=== PATIENT | female | born 1945 | race Asian ===

== ENCOUNTER → 2017-01-26 | Outpatient (CLI) | payer MEDICARE | END | disposition home or self-care (01) | LOC: CFH 10:28 | PROVIDERS: ATTEND Internal Medicine | DX: M19.071 Primary osteoarthritis, right ankle and foot (principal); M79.674 Pain in right toe(s); M25.474 Effusion, right foot ==

== ENCOUNTER 2019-12-07 18:10 | Emergency (ER) | payer MEDICARE ==
[~2019-12-07] VITALS: Ht 144.8 cm; Wt 44.9 kg
[2019-12-07 18:12] VITALS: BP 139/78
== END 2019-12-07 19:53 | disposition home or self-care (01) ==
LOC: ED 19:47
DX: H66.92 Otitis media, unspecified, left ear (principal); H61.22 Impacted cerumen, left ear
CPT/HCPCS: 70450; 99284

== ENCOUNTER 2020-06-03 12:19 | Emergency (ER) | payer MEDICARE ==
[~2020-06-03] VITALS: Ht 144.8 cm; Wt 47.1 kg
[2020-06-03 12:23] VITALS: BP 129/82
--- NOTE | 2020-06-03 12:58 | NUR ---
Assumed care of patient. Patient fell off 6 foot ladder yesterday. Denies LOC. C/O left posterior head lac, bleeding controlled. C/O left elbow pain, swelling, and skin tear from fall. NAD. A&Ox4. Will continue to monitor.
[2020-06-03] MEDS ORDERED: NEOSPORIN OINT. PKT 1 PACKET ONE (13:16)
== END 2020-06-03 14:32 | disposition home or self-care (01) ==
LOC: ED 14:00
DX: S01.01XA Laceration without foreign body of scalp, initial encounter (principal); S50.312A Abrasion of left elbow, initial encounter; L03.113 Cellulitis of right upper limb; R55 Syncope and collapse; M54.2 Cervicalgia; Z90.710 Acquired absence of both cervix and uterus; W11.XXXA Fall on and from ladder, initial encounter; Y93.89 Activity, other specified; Y92.098 Other place in other non-institutional residence as the place of occurrence of the external cause; Y99.8 Other external cause status
CPT/HCPCS: 12031; 70450; 72125; 93005; 99285

== ENCOUNTER 2020-06-11 12:45 | Emergency (ER) | payer MEDICARE ==
[~2020-06-11] VITALS: Ht 144.8 cm; Wt 46.7 kg
[2020-06-11 12:47] VITALS: BP 123/76
--- NOTE | 2020-06-11 13:29 | NUR ---
Patient/Caregiver given discharge instructions and they have confirmed that they understand the instructions. Patient ambulatory with steady gait.
== END 2020-06-11 13:30 | disposition home or self-care (01) ==
LOC: ED 13:18
DX: S01.01XD Laceration without foreign body of scalp, subsequent encounter (principal); Z90.710 Acquired absence of both cervix and uterus; X58.XXXD Exposure to other specified factors, subsequent encounter
CPT/HCPCS: 99281

== ENCOUNTER 2020-06-19 08:14 | Emergency (ER) | payer MEDICARE ==
[~2020-06-19] VITALS: Ht 144.8 cm; Wt 46.6 kg
[2020-06-19 09:09] VITALS: BP 123/68
[2020-06-19 09:22] LABS: BASOPHILS # (AUTO) 0.02 x10^3/uL (0-0.1); BASOPHILS % (AUTO) 0 % (0-1); EOSINOPHILS # (AUTO) 0.04 x10^3/uL (0-0.4); EOSINOPHILS % (AUTO) 1 % (1-7); LYMPHOCYTES # (AUTO) 0.76 x10^3/uL (1-3.4); LYMPHOCYTES % (AUTO) 12 % (22-44); MD NO; MEAN CORPUSCULAR HEMOGLOBIN 29.9 pg (27.0-34.8); MEAN CORPUSCULAR HGB CONC 32.7 g/dL (32.4-35.8); MEAN CORPUSCULAR VOLUME 91.5 fL (80-100); MEAN PLATELET VOLUME 6.7 fL (7.4-10.4); MONOCYTES # (AUTO) 0.49 x10^3/uL (0.2-0.8); MONOCYTES % (AUTO) 8 % (2-9); NEUTROPHILS # (AUTO) 4.95 x10^3/uL (1.8-6.8); NEUTROPHILS % (AUTO) 79 % (42-75); PLATELET COUNT 243 x10^3/uL (130-400); RED BLOOD COUNT 4.19 x10^6/uL (3.82-5.3); RED CELL DISTRIBUTION WIDTH 13.7 % (9.6-15.2)
[2020-06-19 09:29] LABS: ALANINE AMINOTRANSFERASE 26 U/L (12-78); ALBUMIN 3.5 g/dL (3.4-5.0); ANION GAP 3 mmol/L (5-15); CALCIUM 8.9 mg/dL (8.5-10.1); CHLORIDE 111 mmol/L (98-107); CREATININE 0.62 mg/dL (0.55-1.02)
[2020-06-19] MEDS ORDERED: CLINDAMYCIN PMX 600MG/50ML 50 ML IV ONE (09:30)
[2020-06-19] MEDS ORDERED: CLINDAMYCIN PMX 600MG/50ML 50 ML ONE (09:30)
[2020-06-19] MEDS ORDERED: SODIUM CHLORIDE FLUSH 10ML SYR IVF ONE (09:30)
[2020-06-19 09:32] LABS: ALKALINE PHOSPHATASE 80 U/L (45-117); BILIRUBIN,TOTAL 0.2 mg/dL (0.2-1.0); TOTAL PROTEIN 8.3 g/dL (6.4-8.2)
--- NOTE | 2020-06-19 09:36 | NUR ---
PIV STARTED W/O INCIDENT. PT TO RAD.
--- NOTE | 2020-06-19 09:52 | NUR ---
BREAK RN: PT BACK FROM X RAY, ANTBX STARTED, BLANKET GIVEN, PT VERBALIZED NO OTHER NEEDS, CALL LIGHT IN PLACE
--- NOTE | 2020-06-19 10:35 | NUR ---
BREAK RN: INFUSION COMPLETED.
--- NOTE | 2020-06-19 10:54 | NUR ---
Patient/Caregiver given discharge instructions and they have confirmed that they understand the instructions. Patient ambulatory with steady gait.
== END 2020-06-19 10:56 | disposition home or self-care (01) ==
LOC: ED 08:49
DX: S90.571A Other superficial bite of ankle, right ankle, initial encounter (principal); G89.29 Other chronic pain; R10.13 Epigastric pain; E78.5 Hyperlipidemia, unspecified; Z88.0 Allergy status to penicillin; W55.01XA Bitten by cat, initial encounter; Y93.89 Activity, other specified; Y92.89 Other specified places as the place of occurrence of the external cause; Y99.8 Other external cause status
CPT/HCPCS: 36415; 80053; 83690; 85025; 96365; 99284

== ENCOUNTER 2020-06-22 10:23 | Emergency (ER) | payer MEDICARE ==
[~2020-06-22] VITALS: Ht 144.8 cm; Wt 46.8 kg
[2020-06-22 10:25] VITALS: BP 104/67
[2020-06-22] MEDS ORDERED: AMPICILLIN/SULBACTAM 3 GM in SODIUM CHLORIDE 0.9% 100 ML IV ONE (11:00)
[2020-06-22 11:22] LABS: BASOPHILS # (AUTO) 0.02 x10^3/uL (0-0.1); BASOPHILS % (AUTO) 0 % (0-1); EOSINOPHILS % (AUTO) 2 % (1-7); LYMPHOCYTES # (AUTO) 1.05 x10^3/uL (1-3.4); LYMPHOCYTES % (AUTO) 17 % (22-44); MD NO; MEAN CORPUSCULAR HEMOGLOBIN 30.3 pg (27.0-34.8); MEAN CORPUSCULAR HGB CONC 33.5 g/dL (32.4-35.8); MEAN CORPUSCULAR VOLUME 90.4 fL (80-100); MEAN PLATELET VOLUME 7.2 fL (7.4-10.4); MONOCYTES # (AUTO) 0.56 x10^3/uL (0.2-0.8); MONOCYTES % (AUTO) 9 % (2-9); NEUTROPHILS % (AUTO) 71 % (42-75); PLATELET COUNT 265 x10^3/uL (130-400); RED BLOOD COUNT 4.02 x10^6/uL (3.82-5.3); RED CELL DISTRIBUTION WIDTH 13.3 % (9.6-15.2)
[2020-06-22 11:25] LABS: ANION GAP 7 mmol/L (5-15); CALCIUM 8.8 mg/dL (8.5-10.1); CHLORIDE 108 mmol/L (98-107); CREATININE 0.76 mg/dL (0.55-1.02)
== END 2020-06-22 12:04 | disposition home or self-care (01) ==
LOC: ED 10:37
DX: S80.871A Other superficial bite, right lower leg, initial encounter (principal); L03.115 Cellulitis of right lower limb; L02.415 Cutaneous abscess of right lower limb; W55.01XA Bitten by cat, initial encounter; Y93.9 Activity, unspecified; Y92.89 Other specified places as the place of occurrence of the external cause; Y99.8 Other external cause status
CPT/HCPCS: 36415; 80048; 85025; 96365; 99284; J0295

== ENCOUNTER 2020-11-18 18:36 | Emergency (ER) | payer MEDICARE ==
[~2020-11-18] VITALS: Ht 144.8 cm; Wt 45.2 kg
--- NOTE | 2020-11-18 20:02 | NUR ---
PT EXPLAINED REASON FOR STRAIGHT CATH, IV PLACEMENT, AND CT SCAN. PT UNDERSTANDING AND AGREEABLE TO ALL CARE. STRAIGHT CATH URINE COLLECTED WITH RN WITNESS, IV PLACED, LABS SENT, AWAITING CT
[2020-11-18 20:11] LABS: ALBUMIN 4.1 g/dL (3.4-5.0); ANION GAP 6 mmol/L (5-15); CALCIUM 9.3 mg/dL (8.5-10.1); CHLORIDE 111 mmol/L (98-107); CREATININE 0.74 mg/dL (0.55-1.02)
[2020-11-18 20:16] LABS: BASOPHILS % (AUTO) 1 % (0-1); EOSINOPHILS % (AUTO) 1 % (1-7); LYMPHOCYTES % (AUTO) 17 % (22-44); MEAN CORPUSCULAR HEMOGLOBIN 29.7 pg (27.0-34.8); MEAN CORPUSCULAR HGB CONC 33.4 g/dL (32.4-35.8); MEAN PLATELET VOLUME 7.4 fL (7.4-10.4); MONOCYTES % (AUTO) 6 % (2-9); NEUTROPHILS % (AUTO) 75 % (42-75); PLATELET COUNT 281 x10^3/uL (130-400); RED BLOOD COUNT 4.18 x10^6/uL (3.82-5.3); RED CELL DISTRIBUTION WIDTH 13.4 % (9.6-15.2)
[2020-11-18 20:18] LABS: MD NO
[2020-11-18 20:21] LABS: MICROSCOPIC AUTO
--- NOTE | 2020-11-18 21:04 | NUR ---
PT TO CT AT THIS TIME
[2020-11-18] MEDS ORDERED: OMNIPAQUE 350 MG/ML, 100ML BOTTLE ONE (21:09)
--- NOTE | 2020-11-18 21:18 | NUR ---
PT BACK FROM CT SCAN, PT PTOVIDED UNDERWEAR WITH PAD. AMBULATED STEADY TO RESTROOM AND GIVEN FOAM CLEANSER TO CLEAN UP.
[2020-11-18] MEDS ORDERED: CEFDINIR 300 MG CAPSULE ONE (22:16)
[2020-11-18] MEDS ORDERED: CEFDINIR 300 MG CAPSULE PO ONE (22:30)
[2020-11-18 22:34] VITALS: BP 140/85
== END 2020-11-18 22:57 | disposition home or self-care (01) ==
LOC: ED 19:21
DX: N30.01 Acute cystitis with hematuria (principal)
CPT/HCPCS: 36415; 74177; 80048; 81001; 82040; 85025; 87077; 87086; 87186; 99285; Q9967

== ENCOUNTER 2020-12-19 12:50 | Emergency (ER) | payer MEDICARE ==
[~2020-12-19] VITALS: Ht 144.8 cm; Wt 43.1 kg
--- NOTE | 2020-12-19 13:51 | NUR ---
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
--- NOTE | 2020-12-19 13:59 | NUR ---
C/O DIARRHEA X2 WEEKS, PT STATES IT 05/06. HAD RECENT ER VISIT FOR SAME.
[2020-12-19] MEDS ORDERED: SIMV20TA19 PO (14:04)
[2020-12-19] MEDS ORDERED: DICY20TA4 PO (14:04)
[2020-12-19] MEDS ORDERED: OMEP20CA20 PO (14:04)
[2020-12-19] MEDS ORDERED: TAFL1DRO OP (14:04)
[2020-12-19] MEDS ORDERED: MOME13HF INH (14:04)
[2020-12-19] MEDS ORDERED: CITA20TA6 PO (14:04)
[2020-12-19] MEDS ORDERED: LATA2.5D4 OP (14:04)
--- NOTE | 2020-12-19 14:38 | NUR ---
STUDENT AT BEDSIDE.
[2020-12-19] MEDS ORDERED: SODIUM CHLORIDE FLUSH 10ML SYR IVF ONE (15:30)
[2020-12-19] MEDS ORDERED: SODIUM CHLORIDE 0.9% 1,000 ML IV ONE (15:30)
[2020-12-19] MEDS ORDERED: LOPERAMIDE 2 MG CAPSULE PO ONE (15:30)
[2020-12-19 15:52] LABS: BASOPHILS % (AUTO) 1 % (0-1); EOSINOPHILS % (AUTO) 1 % (1-7); LYMPHOCYTES % (AUTO) 20 % (22-44); MEAN CORPUSCULAR HEMOGLOBIN 30.1 pg (27.0-34.8); MEAN CORPUSCULAR HGB CONC 33.6 g/dL (32.4-35.8); MEAN PLATELET VOLUME 6.9 fL (7.4-10.4); MONOCYTES % (AUTO) 8 % (2-9); NEUTROPHILS % (AUTO) 71 % (42-75); PLATELET COUNT 265 x10^3/uL (130-400); RED BLOOD COUNT 4.16 x10^6/uL (3.82-5.3); RED CELL DISTRIBUTION WIDTH 13.6 % (9.6-15.2)
[2020-12-19 15:55] LABS: MD NO
[2020-12-19 16:03] LABS: ALBUMIN 3.7 g/dL (3.4-5.0); ANION GAP 5 mmol/L (5-15); CALCIUM 9.3 mg/dL (8.5-10.1); CHLORIDE 109 mmol/L (98-107); CREATININE 0.64 mg/dL (0.55-1.02)
[2020-12-19] MEDS ORDERED: LOPERAMIDE 2 MG CAPSULE ONE (16:18)
[2020-12-19 16:26] VITALS: BP 143/80
== END 2020-12-19 17:22 | disposition home or self-care (01) ==
LOC: ED 14:26
DX: R19.7 Diarrhea, unspecified (principal); R15.9 Full incontinence of feces; E78.5 Hyperlipidemia, unspecified; R10.9 Unspecified abdominal pain; M19.90 Unspecified osteoarthritis, unspecified site; Z90.710 Acquired absence of both cervix and uterus
CPT/HCPCS: 36415; 80048; 82040; 85025; 96360; 99283; J7030

== ENCOUNTER 2021-01-10 15:55 | Emergency (ER) | payer MEDICARE ==
[~2021-01-10] VITALS: Ht 144.8 cm; Wt 42.9 kg
[~2021-01-10 15:55] MED LIST: CITA20TA6 PO; DICY20TA4 PO; LATA2.5D4 OP; MOME13HF INH; OMEP20CA20 PO; SIMV20TA19 PO; TAFL1DRO OP
--- NOTE | 2021-01-10 16:24 | NUR ---
CHEO RN: PT REPORTS PAINFUL URINATION. VS STABLE. LABS DRAWN. DR BOSS IN ROOM. CALL LIGHT IN PLACE. REPORT GIVEN TO
[2021-01-10 16:25] VITALS: BP 125/70
[2021-01-10] MEDS ORDERED: PHENAZOPYRIDINE 200 MG TABLET ONE (16:25)
[2021-01-10 16:27] LABS: BASOPHILS % (AUTO) 1 % (0-1); EOSINOPHILS % (AUTO) 1 % (1-7); LYMPHOCYTES % (AUTO) 11 % (22-44); MEAN CORPUSCULAR HEMOGLOBIN 29.7 pg (27.0-34.8); MEAN CORPUSCULAR HGB CONC 33.5 g/dL (32.4-35.8); MONOCYTES % (AUTO) 6 % (2-9); NEUTROPHILS % (AUTO) 81 % (42-75); PLATELET COUNT 239 x10^3/uL (130-400); RED BLOOD COUNT 4.17 x10^6/uL (3.82-5.3); RED CELL DISTRIBUTION WIDTH 13.9 % (9.6-15.2)
[2021-01-10 16:28] LABS: MD NO
[2021-01-10] MEDS ORDERED: PHENAZOPYRIDINE 200 MG TABLET PO ONE (16:30)
[2021-01-10 16:39] LABS: ALBUMIN 3.9 g/dL (3.4-5.0); ANION GAP 6 mmol/L (5-15); CHLORIDE 111 mmol/L (98-107); CREATININE 0.64 mg/dL (0.55-1.02)
[2021-01-10 16:59] LABS: MICROSCOPIC INDICATED
== END 2021-01-10 17:55 | disposition home or self-care (01) ==
LOC: ED 16:15
DX: N30.00 Acute cystitis without hematuria (principal)
CPT/HCPCS: 36415; 51701; 80048; 81001; 82040; 85025; 99283; P9612

== ENCOUNTER 2021-05-23 08:44 | Emergency (ER) | payer MEDICARE ==
[~2021-05-23] VITALS: Ht 144.8 cm; Wt 43.4 kg
--- NOTE | 2021-05-23 09:25 | NUR ---
ASSUMED CARE OF PT. SHE HAS FREQUENT UTI AND IS HAVING BURNING SENSATION AND VISUALIZED SMALL DROP OF BLOOD. VSS, NADN, CALL LIGHT W/ IN REACH. LABS COMPLETED.
[2021-05-23 09:40] LABS: BASOPHILS % (AUTO) 0 % (0-1); EOSINOPHILS % (AUTO) 1 % (1-7); LYMPHOCYTES % (AUTO) 10 % (22-44); MEAN CORPUSCULAR HEMOGLOBIN 30.2 pg (27.0-34.8); MEAN CORPUSCULAR HGB CONC 34.4 g/dL (32.4-35.8); MEAN PLATELET VOLUME 7.2 fL (7.4-10.4); MONOCYTES % (AUTO) 6 % (2-9); NEUTROPHILS % (AUTO) 82 % (42-75); PLATELET COUNT 223 x10^3/uL (130-400); RED BLOOD COUNT 4.21 x10^6/uL (3.82-5.3); RED CELL DISTRIBUTION WIDTH 13.7 % (9.6-15.2)
[2021-05-23 09:41] LABS: ALANINE AMINOTRANSFERASE 17 U/L (12-78); ALBUMIN 3.7 g/dL (3.4-5.0); ANION GAP 4 mmol/L (5-15); CALCIUM 8.8 mg/dL (8.5-10.1); CHLORIDE 110 mmol/L (98-107); CREATININE 0.57 mg/dL (0.55-1.02)
--- NOTE | 2021-05-23 09:41 | NUR ---
STERILE PROCEDURE TO STRAIGHT CATH PATIENT. SHE TOLERATED WELL. SAMPLE WALKED DOWN TO LAB. NADN, CALL LIGHT W/IN REACH.
[2021-05-23 09:44] LABS: ALKALINE PHOSPHATASE 64 U/L (45-117); BILIRUBIN,TOTAL 0.5 mg/dL (0.2-1.0); TOTAL PROTEIN 7.6 g/dL (6.4-8.2)
[2021-05-23 10:07] LABS: MICROSCOPIC AUTO
[2021-05-23 10:26] VITALS: BP 157/78
--- NOTE | 2021-05-23 10:27 | NUR ---
PT RESTING ON GURNEY, PT DENIES ANY NEEEDS. VSS, NADN, CALL LIGHT W/IN REACH.
== END 2021-05-23 11:12 | disposition home or self-care (01) ==
LOC: ED 09:32
DX: N39.0 Urinary tract infection, site not specified (principal); E78.5 Hyperlipidemia, unspecified; M06.9 Rheumatoid arthritis, unspecified
CPT/HCPCS: 36415; 80053; 81001; 85025; 87077; 87086; 87186; 99283